=== PATIENT | male | born 1950 | race Caucasian/White ===

== ENCOUNTER 2018-09-13 12:20 | Outpatient (CLI) | payer MEDICARE, OTHER, SELFPAY ==
[2018-09-13 13:32] LABS: Anion Gap 8.8 mmol/L (3-11); BUN 31 mg/dL (7-18); CO2 26.2 mmol/L (21.0-32.0); Calcium 9.2 mg/dL (8.5-10.1); Calculated LDL 89 mg/dL; Chloride 107 mmol/L (98-107); Cholesterol 151 mg/dL (50-200); Estimated GFR 59.86 (mL/min/1.73m2); Glucose 98 mg/dL (70-100); HDL Cholesterol 43 mg/dL (40-60); Potassium 4.7 mmol/L (3.5-5.1); Sodium 142 mmol/L (136-145); Triglyceride 96 mg/dL (30-150)
== END 2018-09-13 12:40 ==
PROVIDERS: PCP Family Medicine; Visit Provider Family Medicine
DX: I10 Essential (primary) hypertension (principal); E78.00 Pure hypercholesterolemia, unspecified; M54.5 Low back pain; M51.06 Intervertebral disc disorders with myelopathy, lumbar region; M25.78 Osteophyte, vertebrae; M43.16 Spondylolisthesis, lumbar region
CPT/HCPCS: 36415; 80048; 80061; 83721; 72110

== ENCOUNTER 2018-09-13 13:11 | Outpatient (CLI) | payer MEDICARE, OTHER, SELFPAY ==
--- NOTE | 2018-09-13 12:30 | DI.RAD_ITS ---
SYMPTOMS/DIAGNOSIS: CHRONIC LOW BACK PAIN, M54.5 LUMBAR SPINE: No compression fractures are seen. There are severe degenerative disc changes throughout. There are prominent endplate osteophytes throughout. There is a degenerative biconvex scoliosis. The degenerative changes are most prominent on the right side of L4-5. Disc space narrowing is most severe at L5-S1. There is L5 spondylolysis and mild L5-S1 spondylolisthesis. The SI joints and hip joints are unremarkable. IMPRESSION: Severe degenerative disc changes. L5-S1 spondylolysis and mild L5- S1 spondylolisthesis.
== END 2018-09-13 13:31 ==
PROVIDERS: PCP Family Medicine; Visit Provider Family Medicine
DX: M54.5 Low back pain (principal); M51.06 Intervertebral disc disorders with myelopathy, lumbar region; M25.78 Osteophyte, vertebrae; M43.16 Spondylolisthesis, lumbar region
CPT/HCPCS: 72110

== ENCOUNTER 2018-10-08 00:58 | Outpatient (CLI) | payer MEDICARE, OTHER, SELFPAY ==
--- NOTE | 2018-10-08 14:00 | MERGE_ITS ---
*[facility]* *[facility]* [address] [place] [address] Date of study: 10/08/2018 Transthoracic Echocardiography M-mode, complete 2D, complete spectral Doppler, and color Doppler *STUDY CONCLUSIONS* Summary: 1. Left ventricle: The cavity size was normal. Systolic function was mildly reduced. The estimated ejection fraction was 45-50%. Severe hypokinesis of the septal myocardium. The study is not technically sufficient to allow evaluation of LV diastolic function. 2. Aortic valve: There was no stenosis. Peak velocity (S): 1.9m/sec. Mean gradient (S): 7.7mm Hg. VTI ratio of LVOT to aortic valve: 0.69. Valve area (VTI): 2.1cm^2. 3. Mitral valve: There was mild regurgitation. Valve area by pressure half-time: 2.4cm^2. 4. Left atrium: The atrium was mildly dilated. 5. Right ventricle: The cavity size was normal. Wall thickness was normal. Systolic function was normal. 6. Pulmonary arteries: Pulmonary systolic pressure was >= 20mm Hg. 7. Inferior vena cava: Poorly visualized. *PATIENT PRESENTATION* Height: 162.6cm (64in ) S/D Pressure: 142 / 76 Weight: 88.5kg (194.6lb ) BSA: 2.03m^2 Test start time: 02:00 PM. Test stop time: 03:00 PM. PERFORMING Unknown CONSULTING Juan Arango ORDERING Juan Arango REFERRING Juan Arango PERFORMING [facility] [employer]PRESENTATIVE Kathia Trinh *PROCEDURE DATA* Procedure information: This study was interpreted by [facility]. Pertinent images and digital data are archived for permanent storage and are available for subsequent review. No prior study was available for comparison. Study status: Routine. Transthoracic echocardiography. M-mode, complete 2D, complete spectral Doppler, and color Doppler. A Transthoracic Echocardiogram was performed. Scanning was performed from the parasternal, apical, subcostal, and suprasternal notch acoustic windows. Images were obtained using an [employer] 2000 cardiac ultrasound machine. Image quality was adequate. Study completion: The patient tolerated the procedure well. History: PMH: Dyspnea on exertion. *CARDIAC ANATOMY* Left ventricle: The cavity size was normal. Systolic function was mildly reduced. The estimated ejection fraction was 45-50%. Regional wall motion abnormalities: Severe hypokinesis of the septal myocardium. The study is not technically sufficient to allow evaluation of LV diastolic function. Aortic valve: Doppler: There was no stenosis. There was no significant regurgitation. VTI ratio of LVOT to aortic valve: 0.69. Valve area (VTI): 2.1cm^2. Indexed valve area (VTI): 1cm^2/m^2. Peak velocity ratio of LVOT to aortic valve: 0.74. Valve area (Vmax): 2.2cm^2. Indexed valve area (Vmax): 1.1cm^2/m^2. Mean velocity ratio of LVOT to aortic valve: 0.63. Valve area (Vmean): 1.9cm^2. Indexed valve area (Vmean): 0.9cm^2/m^2. Mean gradient (S): 7.7mm Hg. Peak gradient (S): 14.1mm Hg. Aorta: Aortic root: The aortic root was normal in size. Ascending aorta: The ascending aorta was normal in size. Mitral valve: Doppler: There was no evidence for stenosis. There was mild regurgitation. Valve area by pressure half-time: 2.4cm^2. Indexed valve area by pressure half-time: 1.2cm^2/m^2. Left atrium: The atrium was mildly dilated. Atrial septum: Poorly visualized. Right ventricle: The cavity size was normal. Wall thickness was normal. Systolic function was normal. Pulmonic valve: Doppler: There was no evidence for stenosis. There was no significant regurgitation. Peak gradient (S): 9.7mm Hg. Tricuspid valve: Doppler: There was mild regurgitation. Pulmonary artery: Poorly visualized. Pulmonary systolic pressure was >= 20mm Hg. Right atrium: The atrium was normal in size. Pericardium: There was no significant pericardial effusion. Systemic veins: Inferior vena cava: Poorly visualized. Measurements Left ventricle Value Reference LV ID, ED, PLAX 5.3 cm 3.5 - 6.0 LV ID, ES, PLAX 3.6 cm 2.1 - 4.0 LV PW thickness, ED, PLAX 1.1 cm LV end-diastolic volume, 1-p A2C 136 ml LV ejection fraction, 1-p A2C 48 % LV end-diastolic volume, 1-p A4C 150 ml LV ejection fraction, 1-p A4C 46 % LV e', lateral 0.102 m/sec LV E/e', lateral 7 Ventricular septum Value Reference IVS thickness, ED, PLAX 1.1 cm LVOT Value Reference LVOT ID, A-P 1.9 cm LVOT area 3 cm^2 LVOT peak velocity, S 1.39 m/sec LVOT mean velocity, S 0.83 m/sec LVOT VTI, S 28.9 cm LVOT peak gradient, S 7.7 mm Hg LVOT mean gradient, S 3.4 mm Hg Stroke volume (SV), LVOT DP 86 ml Stroke index (SV/bsa), LVOT DP 42 ml/m^2 Aortic valve Value Reference Aortic valve peak velocity, S 1.9 m/sec Aortic valve mean velocity, S 1.3 m/sec Aortic valve VTI, S 42.0 cm Aortic mean gradient, S 7.7 mm Hg Aortic peak gradient, S 14.1 mm Hg VTI ratio, LVOT/AV 0.69 Aortic valve area, VTI 2.1 cm^2 Velocity ratio, peak, LVOT/AV 0.74 Aortic valve area, peak velocity 2.2 cm^2 Velocity ratio, mean, LVOT/AV 0.63 Aortic valve area, mean velocity 1.9 cm^2 Aortic valve area/bsa, mean velocity 0.9 cm^2/m^2 Aorta Value Reference Aortic root ID, ED 2.9 cm Ascending aorta ID, A-P, S 2.8 cm Left atrium Value Reference LA ID, A-P, ES 4.4 cm LA ID/bsa, A-P 2.2 cm/m^2 <=2.2 LA volume, ES, 2-p 68 ml LA volume/bsa, ES, 2-p 34 ml/m^2 LA/aortic root ratio 1.5 Mitral valve Value Reference Mitral E-wave peak velocity 0.69 m/sec Mitral A-wave peak velocity 0.96 m/sec Mitral deceleration time (H) 315 ms 150 - 230 Mitral pressure half-time 91 ms Mitral E/A ratio, peak 0.72 Mitral valve area, PHT, DP 2.4 cm^2 Tricuspid valve Value Reference Tricuspid regurg peak velocity 2.5 m/sec Tricuspid peak RV-RA gradient 24.9 mm Hg Right atrium Value Reference RA area, ES, A4C 13.2 cm^2 8.3 - 19.5 Pulmonic valve Value Reference Pulmonic peak gradient, S 9.7 mm Hg Legend: (L) and (H) adela values outside specified reference range. I have personally reviewed the images and have reviewed and edited the reported findings. Electronically signed by Patrick Light MD 10/08/2018 16:57
== END 2018-10-08 01:18 ==
PROVIDERS: PCP Family Medicine; Visit Provider Family Medicine
DX: R06.09 Other forms of dyspnea (principal); I50.1 Left ventricular failure, unspecified; I34.0 Nonrheumatic mitral (valve) insufficiency; I10 Essential (primary) hypertension; E78.00 Pure hypercholesterolemia, unspecified
CPT/HCPCS: 93306

== ENCOUNTER 2018-10-17 00:45 | Outpatient (CLI) | payer MEDICARE, OTHER, SELFPAY ==
--- NOTE | 2018-10-17 06:58 | MERGEMPI_ITS ---
*[facility]* *[facility]* [address] [place] [address] Myocardial Perfusion Imaging - SPECT Duncan protocol Date of study: 10/17/2018 *PATIENT PRESENTATION* Height: 165.1cm (65in) Blood Pressure: Weight: 90kg (198lb) BSA: 2.07m^2 Referring physician: Patrick Light MD Ordering physician: Juan Arango Impressions: - Abnormal study after maximal exercise. - Abnormal contraction consistent with cardiomyopathy. Summary: 1. Myocardial perfusion imaging: There is a large sized, moderately intense, partially reversible defect involving the inferior wall(s). This suggests large myocardial infarction and ischemia in the distribution of the right coronary artery. Overall ischemia: moderate. 2. Diffuse left ventricular regional motion abnormalities. There is severe hypokinesis involving the apical and septal wall(s) of the left ventricle. 3. Stress ECG conclusions: Vitale treadmill score: -7. This score predicts a moderate risk of cardiac events. Indication: R06.09. History: REASON FOR TESTING: PT, WITH PREVIOUS TX AND 3V CABG, HAD ECHO CARDIOGRAM ON 10/08/18. PT'S DOCTOR FELT IT FLYNN TO DO MPI AT THIS TIME. PMH: CAD, TX WITH 3V CABG, HYPERLIPIDEMIA, HYPERTENSION, DYSPNEA ON EXERTION, ;OW BACK PAIN, INCREASED BODY MASS. FAMILY HX: CVA- BOTH FATHER AND MOTHER. HYPERCHOLESTEROLEMIA- FATHER, HYPERLIPIDEMIA- MOTHER SMOKING: NEVER SMOKER. EXCERCISE: NO REGULAR EXCERCISE. Risk factors: Family history of coronary artery disease. Hypertension. Dyslipidemia. ALLERGIES: PENICILLIN MEDICATIONS: ATORVASTATIN 40 MG DAILY, ASPIRIN 81 MG DAILY, MULTIVITAMIN 1 DAILY. Imaging Technique: Protocol: Duncan protocol. Acquisition: Gated SPECT; 1 day - rest/stress. The patient was imaged in the supine position. Attenuation correction used. Isotope administration: - Rest. Tc[99m]-sestamibi. Dose: 11mCi. Injection time: 09:25 AM. Injection to stress time: 00:45. - Stress. Tc[99m]-sestamibi. Dose: 31mCi. Injection time: 11:40 AM. 1-2 min before end of exercise Baseline ECG: LAST EKG12/07/27- MARKED SINUS BRADYCARDIA, HR 45. TODAY'S EKG-SINUS BRADYCARDIA WITH APC'S, T-ABNORMALITIES TO INFERIOR LEADS. HR 52. Stress protocol: + +---+ +---+ !Stage !HR !BP (mmHg) !Sat! + +---+ +---+ !Baseline supine !52 !144/90 (108)!---! + +---+ +---+ !Baseline standing !59 !150/80 (103)!---! + +---+ +---+ !Stage I; 1.7mph, 10degrees; 3 min !106!168/84 (112)!---! + +---+ +---+ !Stage II; 2.5mph, 12degrees; 3 min !111!172/86 (115)!---! + +---+ +---+ !Stage III; 3.4mph, 14degrees; 3 min!129!174/86 (115)!96%! + +---+ +---+ !Recovery; 1 min !99 !182/62 (102)!---! + +---+ +---+ !Recovery; 3 min !89 !180/74 (109)!---! + +---+ +---+ !Recovery; 6 min !73 !168/72 (104)!---! + +---+ +---+ * Stress results: The rate-pressure product for the peak heart rate and blood pressure was [id number] Hg/min. Stress ECG: EXCERCISE TESTING ENDED IN 7 MINS, 45 SECS DUE TO FATIGUE MAX HR WAS 132, 88% OF TARGET. NORMAL BLOOD PRESSURE RESPONSE. METS: 9.74. ECTOPY: NUMEROUS APC'S AND PVC'S APPRECIATED THROUGHOUT TESTING. NO RUNS. ANGINA: PT DID STATE THAT AT THE END OF EXCERCISE, HE HAD DEVELOPED A VERY SLIGHT CHEST PRESSURE THAT WAS GONE ON THE STOPPING OF EXCERCISE. ISCHEMIA: ISCHEMIC CHANGES NOTED TO II, III, AVF, AND V6. ALL RETURNED TO BASELINE WITH REST. FUNCTIONAL CAPACITY: AVERAGE EXCERCISE CAPACITY. Vitale treadmill score: -7. This score predicts a moderate risk of cardiac events. Myocardial perfusion: Imaging information: gated. There is a large sized, moderately intense, partially reversible defect involving the inferior wall(s). This suggests large myocardial infarction and ischemia in the distribution of the right coronary artery. Overall ischemia: moderate. Ventricular Function (Wall Motion): The calculated left ventricular ejection fraction after stress: 31%. Diffuse left ventricular regional motion abnormalities. There is severe hypokinesis involving the apical and septal wall(s) of the left ventricle. Study data: Patrick Light MD supervised and was readily available during the procedure. This study was interpreted by [facility]. Study status: Routine. Consent: The risks, benefits, and alternatives to the procedure were explained to the patient and informed consent was obtained. Procedure: Initial setup. A baseline ECG was recorded. Surface ECG leads and manual cuff blood pressure measurements were monitored. Heart sounds: Normal. Lung sounds: Normal. Treadmill exercise testing was performed using the Duncan protocol. Study completion: All catheters inserted during the procedure were removed. The patient tolerated the procedure well and was discharged from the lab. Discharge: The patient left the laboratory in stable condition. Birthdate: Patient birthdate: 1950. Sex: Gender: male. Study date: Study date: 10/17/2018. Study time: 00:01 AM. Electronically signed by Patrick Light MD 10/17/2018 12:45
== END 2018-10-17 01:05 ==
PROVIDERS: PCP Family Medicine; Visit Provider Family Medicine
DX: R06.09 Other forms of dyspnea (principal); R94.30 Abnormal result of cardiovascular function study, unspecified; I42.9 Cardiomyopathy, unspecified; I25.2 Old myocardial infarction; I50.1 Left ventricular failure, unspecified; I25.10 Atherosclerotic heart disease of native coronary artery without angina pectoris; Z95.1 Presence of aortocoronary bypass graft; E78.00 Pure hypercholesterolemia, unspecified; I10 Essential (primary) hypertension
CPT/HCPCS: 78452; 93016; 93018; 99204; 93017

== ENCOUNTER 2018-11-12 08:05 | Outpatient (CLI) | payer MEDICARE, OTHER, SELFPAY | END 2018-11-12 08:25 | PROVIDERS: PCP Family Medicine; Visit Provider Internal Medicine Interventional Cardiology | DX: I25.10 Atherosclerotic heart disease of native coronary artery without angina pectoris (principal); I42.9 Cardiomyopathy, unspecified; I10 Essential (primary) hypertension | CPT/HCPCS: 99214; 93005; 93010 ==